=== PATIENT | male | born 1960 | race Caucasian/White ===

== ENCOUNTER → 2022-03-28 11:52 | Outpatient (BNVA) | payer OTHER, SELFPAY | PROVIDERS: PCP Family Medicine; Visit Provider Family Medicine | DX: E78.5 Hyperlipidemia, unspecified (principal); R73.09 Other abnormal glucose; Z51.81 Encounter for therapeutic drug level monitoring; E03.9 Hypothyroidism, unspecified; R97.20 Elevated prostate specific antigen [PSA]; Z13.220 Encounter for screening for lipoid disorders; Z12.11 Encounter for screening for malignant neoplasm of colon; I10 Essential (primary) hypertension | CPT/HCPCS: 80053; 80061; 83036; 84153; 84439; 84443; 85025 ==

== ENCOUNTER 2022-05-18 05:41 | Day surgery (SDC) | payer OTHER, SELFPAY ==
[2022-05-16 13:12] VITALS: BMI 38.1
[2022-05-18 06:08] VITALS: BP 159/97; PULSE 71; RESP 16; TEMP 36.6; O2SAT 95
[2022-05-18] MEDS: sodium chloride 0.9% 1,000 ML 30 ML IV (06:08)
--- NOTE | 2022-05-18 06:48 | ANES.PREANE2 ---
Pre-Anesthetic Assessment Height/Weight: Height 1.85 m Weight 131.088 kg Temp Pulse Resp BP Pulse Ox O2 Del Method 97.8 F 71 16 159/97 95 05/18/22 06:08 05/18/22 06:08 05/18/22 06:08 05/18/22 06:08 05/18/22 06:08 05/18/22 06:08 Preop Diagnosis: screening Operation Date: 05/18/22 07:00 Proposed Procedures p 10601 colon Z12.11(Not Applicable) - Constantin Loomis, DO Was Beta Kwan taken within 24 hours: N/A Was Clonidine taken within 24 hours: N/A Last intake: Intake Last Liquid Date 05/17/22 Last Liquid Time 22:00 Last Solid Date 05/16/22 Last Solid Time 12:00 Social No alcohol and No tobacco Exam alert, oriented x 3, clear to auscultation bilaterally and regular rate & rhythm Airway Mallampati: Class II Comments: Comments: large tongue. upper dentures removed, denies bottom loose teeth History/ROS No significant history except as noted and No significant complaints Pulmonary None reported CV/HEM Hypertension HLD. METS > 4 BPH Hepatic None reported GI None reported Metabolic Hyperlipidemia, Morbid Obesity and Thyroid Disease [facility] None reported Neuropsych None reported Anesthetic Plan ASA status: 2 Anesthesia: Anesthesia Evaluation and MAC Risk of > 500 ml blood loss (7ml/kg in children): Yes, adequate IV access and fluids planned Medications/Allergies Home Medications Medication Instructions Recorded Confirmed Last Taken Type levothyroxine 50 mcg tablet 50 mcg PO DAILY 02/05/21 05/18/22 05/16/22 History (Euthyrox) tamsulosin 0.4 mg capsule 0.4 mg PO DAILY #90 caps 03/28/22 05/18/22 05/16/22 Rx lisinopril 20 mg tablet 50 mg PO DAILY 05/16/22 05/18/22 05/16/22 History lovastatin 40 mg tablet 40 mg PO DAILY 05/16/22 05/18/22 05/16/22 History Allergies Allergy/AdvReac Type Severity Reaction Status Date / Time No Known Drug Allergies Allergy Unknown Verified 05/16/22 13:17 Current Medications Generic Name Dose Route Start Last Admin Trade Name Freq PRN Reason Stop Dose Admin Sodium Chloride 1,000 mls @ 30 mls/hr 05/18/22 06:00 03/15/23 06:08 Sodium Chloride 0.9% IV 05/19/22 05:59 30 mls/hr .Q24H DEVONTE Administration Data Anesthesia Cardiac Studies: No Data to Display
--- NOTE | 2022-05-18 07:03 | PM.HP ---
Providers/Chief Complaint Primary Care Provider: Wai Navarro MD Chief Complaint: Z12.11 History of Present Illness Merlin Dixon is a 61 year old male here for a screening colonoscopy. His last one was 12 years ago and no polyps were identified. He denies any family history of colon cancer. Medications/Allergies Home Medications Medication Instructions Recorded Confirmed Last Taken Type levothyroxine 50 mcg tablet 50 mcg PO DAILY 02/05/21 05/18/22 05/16/22 History (Euthyrox) tamsulosin 0.4 mg capsule 0.4 mg PO DAILY #90 caps 03/28/22 05/18/22 05/16/22 Rx lisinopril 20 mg tablet 50 mg PO DAILY 05/16/22 05/18/22 05/16/22 History lovastatin 40 mg tablet 40 mg PO DAILY 05/16/22 05/18/22 05/16/22 History Allergies Allergy/AdvReac Type Severity Reaction Status Date / Time No Known Drug Allergies Allergy Unknown Verified 05/16/22 13:17 Vitals/I&O/Wt Last Vital Signs Temp 97.8 F 05/18/22 06:08 Pulse 71 05/18/22 06:08 Resp 16 05/18/22 06:08 BP 159/97 05/18/22 06:08 Pulse Ox 95 05/18/22 06:08 O2 Del Method 05/18/22 06:08 Weight last 48 hrs Weight 289 lb A&P Assessment and plan (1) Encounter for screening colonoscopy: Plan Colonoscopy The risks and benefits of the procedure, including bleeding, infection, intestinal perforation requiring surgery, missed lesion were explained to the patient. The patient is understanding of the risks and wishes to proceed. Attestations Medical Necessity Statement*: Home Coding Level of Care Code Acute Code for Chg Fwd Diagnoses Encounter for screening colonoscopy Z12.11
[2022-05-18 07:19] VITALS: BP 138/90; PULSE 81; RESP 14; TEMP 36.3; O2SAT 92
[2022-05-18 07:32] VITALS: BP 128/86; PULSE 75; RESP 18; O2SAT 93
--- NOTE | 2022-05-18 15:21 | ANE.PACU2 ---
Inpatient post-anesthesia follow up: Airway intact: Yes Vital signs: Temperature 97.3 F Pulse Rate 75 Respiratory Rate 18 Blood Pressure 128/86 Pulse Oximetry 93 Oxygen Delivery Me thod Room Air Oxygen Flow Rate Fraction of Inspir ed Oxygen Hydration adequate: Yes Nausea and vomiting: No Pain level: 2 Mental status: Baseline
== END 2022-05-18 07:47 | disposition home or self-care (01) ==
PROVIDERS: PCP Family Medicine; Visit Provider Surgery
PROC: 0DJD8ZZ Inspection of Lower Intestinal Tract, Via Natural or Artificial Opening Endoscopic (ICD-10-PCS; CPT 45378; principal; 2022-05-18 07:00)
DX: Z12.11 Encounter for screening for malignant neoplasm of colon (principal); N40.0 Benign prostatic hyperplasia without lower urinary tract symptoms; E78.5 Hyperlipidemia, unspecified; E66.01 Morbid (severe) obesity due to excess calories; Z68.38 Body mass index [BMI] 38.0-38.9, adult
CPT/HCPCS: 45378; J2704; J7030

== ENCOUNTER → 2023-06-01 09:43 | Outpatient (BNVA) | payer SELFPAY | PROVIDERS: PCP Family Medicine; Visit Provider Nurse Practitioner Family | DX: R11.2 Nausea with vomiting, unspecified (principal) | CPT/HCPCS: 87400 ==

== ENCOUNTER → 2023-08-28 10:56 | Outpatient (BNVA) | payer SELFPAY | PROVIDERS: PCP Family Medicine; Visit Provider Family Medicine | DX: Z51.81 Encounter for therapeutic drug level monitoring (principal); E03.9 Hypothyroidism, unspecified; Z13.220 Encounter for screening for lipoid disorders | CPT/HCPCS: 80053; 80061; 84439; 84443; 85025 ==

== ENCOUNTER 2023-10-16 12:17 | Outpatient (CLI) | payer SELFPAY ==
--- NOTE | 2023-10-16 | ECG_ITS ---
[facility] Test Date: 2023-10-16 Pat Name: Merlin Dixon Department: Room: Gender: Male Deckhand Maintenance: : 1960 Requested By: Wai Love Order Number: [id number] Avelar MD: Fitz Benavidez M.D. Interpretive Statements NAME OF STUDY: TREADMILL STRESS TEST INDICATION: [Chest Pain; Nausea] EXERCISE DATA: The patient was exercised by Dago protocol. Baseline heart rate was 104 beats per minute. Baseline blood pressure was 168/103 millimeters of mercury. Maximal predicted heart rate was 158 beats per minute. Maximum heart rate achieved was 163, which was 103% of the maximum predicted heart rate. Maximum blood pressure was 196/73 millimeters of mercury. Total exercise time was 4 minutes 23 seconds. Maximum METs achieved was 7. The reason for ending the test was a protocol completion. The patient complained of shortness of breath during the stress test, which then resolved at the end of the test. ELECTROCARDIOGRAM: BASELINE: Showed sinus tachycardia, normal axis, no significant ST-T changes at the baseline noted. [] EXERCISE: At the peak exercise level, [] No significant ST-T changes suggestive of ischemia noted. [] RECOVERY: During the recovery period, heart rate dropped appropriately. No significant ST-T changes in the recovery suggestive of ischemia noted. [] CONCLUSION: 1. Exercise capacity is fair. 2. Heart rate response was appropriate 3. Blood pressure response was appropriate 4. Symptoms not suggestive of ischemia. 5. Stress test is not suggestive of ischemia. Electronically Signed On 10-27-2023 14:11:37 CDT by Fitz Benavidez M.D. [id number]
[2023-10-16 12:48] VITALS: BMI 36.5
[2023-10-16 13:18] VITALS: BP 166/64; PULSE 115
== END 2023-10-16 12:18 | disposition home or self-care (01) ==
PROVIDERS: PCP Family Medicine; Visit Provider Family Medicine
DX: R07.9 Chest pain, unspecified (principal)
CPT/HCPCS: 93017

== ENCOUNTER → 2024-10-23 12:48 | Outpatient (BNVA) | payer OTHER, SELFPAY | PROVIDERS: PCP Family Medicine; Visit Provider Specialist | DX: M19.011 Primary osteoarthritis, right shoulder (principal); M25.811 Other specified joint disorders, right shoulder | CPT/HCPCS: 73030 ==

== ENCOUNTER 2024-11-08 12:32 | Outpatient (CLI) | payer OTHER, SELFPAY ==
--- NOTE | 2024-11-08 13:00 | MR_ITS ---
WS: [id number] MRI RIGHT SHOULDER NONCONTRAST TECHNIQUE: Sagittal T2, coronal T1, T2 and proton density imaging. Axial gradient PDE imaging. CLINICAL INFORMATION: right shoulder pain COMPARISON: None. FINDINGS: Advanced degenerative narrowing glenohumeral articulation with hypertrophic spurring along the glenoid and humeral neck. Advanced degenerative arthritis AC joint with moderate downsloping acromion with impingement on the underlying supraspinatus and infraspinatus. Subacromial spurring. Chronic thinning of the supraspinatus and infraspinatus. Teres minor appears intact. Subscapularis tendon appears intact. Hypertrophic changes along the bicipital groove. Intra-articular biceps tendon appears somewhat diminutive but intact. Calcified intra-articular loose body along the posterior glenoid. See bookmarked images. MR/MR shoulder RT wo con* [id number] IMPRESSION: 1. Advanced degenerative narrowing glenohumeral articulation with hypertrophi c spurring along the glenoid and humeral neck. 2. Advanced degenerative arthritis AC joint with impingement on the underlying supraspinatus and infraspinatus. Subacromial spurring. 3. Chronic thinning of the supraspinatus and infraspinatus. Rotator cuff is in tact 4. Hypertrophic changes along the bicipital groove. Intra-articular biceps ten don appears somewhat diminutive but intact. This may be due to prior tear. 5. Medial subluxation of the biceps tendon along the proximal bicipital groove . 6. Calcified intra-articular loose body along the posterior superior joint cap tyree adjacent to the posterior glenoid.
== END 2024-11-08 12:33 | disposition home or self-care (01) ==
LOC: RAD 12:35
PROVIDERS: PCP Family Medicine; Visit Provider Specialist
DX: M19.011 Primary osteoarthritis, right shoulder (principal); M77.8 Other enthesopathies, not elsewhere classified; M25.811 Other specified joint disorders, right shoulder; S43.081A Other subluxation of right shoulder joint, initial encounter; X58.XXXA Exposure to other specified factors, initial encounter
CPT/HCPCS: 73221

== ENCOUNTER → 2025-01-28 13:31 | Outpatient (BNVA) | payer OTHER, SELFPAY | PROVIDERS: PCP Family Medicine; Visit Provider Family Medicine | DX: Z13.6 Encounter for screening for cardiovascular disorders (principal); I10 Essential (primary) hypertension; A93.8 Other specified arthropod-borne viral fevers; R73.09 Other abnormal glucose; E03.9 Hypothyroidism, unspecified; E55.9 Vitamin D deficiency, unspecified; E53.8 Deficiency of other specified B group vitamins; Z51.81 Encounter for therapeutic drug level monitoring | CPT/HCPCS: 80053; 80061; 82306; 82607; 83036; 84439; 84443; 85025; 86140; 86618; 86666; 86757 ==

== ENCOUNTER 2025-02-12 14:08 | Outpatient (CLI) | payer OTHER, SELFPAY ==
--- NOTE | 2025-02-12 14:45 | CT_ITS ---
WS: [id number] CT chest wo con [id number] HISTORY: Lung nodule on CT at [place] in 2023 TECHNIQUE: Axial imaging performed through the thorax. Coronal and sagittal reformats are submitted. All CT scans at [facility] use at least one of these dose optimization techniques: automated exposure control; mA and/or kV adjustment per patient size (includes targeted exams where dose is matched to clinical indication); or iterative reconstruction. CONTRAST: None DLP: 735.27 mGy.cm COMPARISON: 10/03/2023 Lungs and central airway: Emphysema. Numerous bilateral pulmonary nodules are identified. The largest nodule is 4.8 mm in the RIGHT lower lobe. Minimal change in size as compared to 10/03/2023. Linear atelectasis at the LEFT lung base. Pleura: Normal. No pleural effusion. Heart and pericardium: Normal size heart. There is a small pericardial effusion which was also present on the prior study. Mediastinum and monserrat: No mediastinum or hilar adenopathy. Vessels: Normal size aortic and pulmonary artery. No coronary artery calcifications. Chest wall and lower neck: No soft tissue masses. Upper abdomen: Mild hepatic steatosis. No bile duct dilatation. Osseous structures: No destructive process. CT/CT chest wo con [id number] IMPRESSION: 1. There are multiple bilateral pulmonary nodules. The largest is 4.8 mm in th e RIGHT lower lobe. Majority of these were present and stable since 10/03/2023. Consider yearly CT evaluation follow-up. 2. No mediastinal or hilar adenopathy. 3. Centrilobular emphysema. 4. Small pericardial effusion stable since 10/03/2023.
== END 2025-02-12 14:09 | disposition home or self-care (01) ==
LOC: RAD 14:09
PROVIDERS: PCP Family Medicine; Visit Provider Family Medicine
DX: R91.8 Other nonspecific abnormal finding of lung field (principal); J43.2 Centrilobular emphysema; J90 Pleural effusion, not elsewhere classified
CPT/HCPCS: 71250

== ENCOUNTER → 2025-03-05 10:58 | Outpatient (BNVA) | payer OTHER, SELFPAY | PROVIDERS: PCP Family Medicine; Visit Provider Specialist | DX: M19.012 Primary osteoarthritis, left shoulder (principal) | CPT/HCPCS: 73030 ==